=== PATIENT | female | born 2000 | race African-American/Black ===

== ENCOUNTER 2018-08-08 13:39 | Observation (INO) | payer OTHER ==
--- NOTE | 2018-08-08 13:51 | PDOC ---
Rapid Medical Evaluation Time Seen by Provider: 08/08/18 13:49 Medical Evaluation: 08/08/18 13:49 I have performed a brief in-person evaluation of this patient. The patient presents with a chief complaint of: abd pain x this morning, "feels like maybe pressure", diarrhea this morning, denies N/V/fever Pertinent physical exam findings: obese, RUQ/epigastric tenderness I have ordered the following: labs, ct, urine The patient will proceed to the ED for further evaluation.
[2018-08-08 13:54] VITALS: BMI 42.0
--- NOTE | 2018-08-08 15:01 | PDOC ---
History of Present Illness - General Chief Complaint: Pain, Acute Stated Complaint: ABD PAIN Time Seen by Provider: 08/08/18 13:49 History Source: Patient Exam Limitations: No Limitations - History of Present Illness Initial Comments: 08/08/18 15:01 17 year old woman with a history of endometritis, asthma and hidradenitis suppurativa who presetns with mid abdominal pain that is pressure like rated 8/ 10 and onset this morning when she woke up. She took some Aleve and pepto bismol this morning without relief. She states the pain has been constant since onset. She reports one episode of loose nonbloody stool but denies nausea, vomiting, fever, chset pain ,shortness of breath. She states that she has had one episode of this same pain several years ago and was found to have a peylonephritis. She has irregular menses and is currently menstruating. She has an IUD for control and is sexually active with one partner She denies vaginal discharge. Past History - Past Medical History Allergies/Adverse Reactions: Allergies Allergy/AdvReac Type Severity Reaction Status Date / Time No Known Allergies Allergy Verified 08/08/18 13:50 Home Medications: Ambulatory Orders Cephalexin Monohydrate [Keflex -] 500 mg PO BID 7 Days #14 capsule 08/08/18 Levonorgestrel [Karla] 1 each IY ASDIR 08/08/18 - Suicide/Smoking/Psychosocial Hx Smoking History: Never smoked Information on smoking cessation initiated: No Hx Alcohol Use: No Drug/Substance Use Hx: Yes (MARIJUANA) Review of Systems - Review of Systems Able to Perform ROS?: Yes Comments:: 08/08/18 17:43 GENERAL/CONSTITUTIONAL: No fever or chills. No weakness. HEAD, EYES, EARS, NOSE AND THROAT: No change in vision. No ear pain or discharge. No sore throat. CARDIOVASCULAR: No chest pain or shortness of breath RESPIRATORY: No cough, wheezing, or hemoptysis. GASTROINTESTINAL: No nausea, vomiting, constipation. GENITOURINARY: No dysuria, frequency, or change in urination. MUSCULOSKELETAL: No joint or muscle swelling or pain. No neck or back pain. SKIN: No rash NEUROLOGIC: No headache, vertigo, loss of consciousness, or change in strength/ sensation. ENDOCRINE: No increased thirst. No abnormal weight change HEMATOLOGIC/LYMPHATIC: No anemia, easy bleeding, or history of blood clots. ALLERGIC/IMMUNOLOGIC: No hives or skin allergy. Is the patient limited Singaporean proficient: No *Physical Exam - Vital Signs Last Vital Signs Temp Pulse Resp BP Pulse Ox 98.1 F 103 H 16 128/69 97 08/08/18 13:50 08/08/18 13:50 08/08/18 13:50 08/08/18 13:50 08/08/18 13:50 - Physical Exam Comments: 08/08/18 17:43 GENERAL: Awake, alert, and fully oriented, in no acute distress HEAD: No signs of trauma, normocephalic, atraumatic EYES: EOMI, sclera anicteric, conjunctiva clear ENT: oropharynx clear without exudates. Moist mucosa NECK: Normal ROM, supple LUNGS: No distress, speaks full sentences, clear to auscultation bilaterally HEART: Regular rate and rhythm, normal S1 and S2, no murmurs, rubs or gallops, peripheral pulses normal and equal bilaterally. ABDOMEN: Soft, + RLQ tenderness, normoactive bowel sounds. No guarding, no rebound. No masses EXTREMITIES : Normal inspection, Normal range of motion, no edema. No clubbing or cyanosis. NEUROLOGICAL: Cranial nerves II through XII grossly intact. Normal speech, no focal sensorimotor deficits SKIN: Warm, Dry, normal turgor, no rashes or lesions noted PELVIC: blood in vaginal canal, intact IUD strings, no cervical motion tenderness, no adnexal masses palpated ED Treatment Course - LABORATORY CBC & Chemistry Diagram: 08/08/18 15:38 08/08/18 15:38 Medical Decision Making - Medical Decision Making 08/08/18 16:41 17 year old woman with a history of endometritis, asthma and hidradenitis suppurativa who presetns with mid abdominal pain that is pressure like rated 8/ 10 and onset this morning when she woke up. She took some Aleve and pepto bismol this morning without relief. She states the pain has been constant since onset. She reports one episode of loose nonbloody stool but denies nausea, vomiting, fever, chset pain ,shortness of breath. She states that she has had one episode of this same pain several years ago and was found to have a peylonephritis. She has irregular menses and is currently menstruating. She has an IUD for control and is sexually active with one partner She denies vaginal discharge. ED Course: ddx ibnlt: appendicitis vs ovarian torsion vs ectopic vs toa cbc, cmp, ua, upreg, CT AP 08/08/18 17:47 ivf, tylenol, reglan 08/08/18 17:47 leukocytosis on cbc small UTI 08/08/18 19:04 CT AP - negative will treat uti and d/c with strict return precautions 08/08/18 19:24 patient reassessed prior to d/c oral temp of 102.3 fluid boluis given toradl 15 will likely admit for unremitting abdominal pain and fever likely 2/2 uti r/o early appy *DC/Admit/Observation/Transfer Diagnosis at time of Disposition: Urinary tract infection - Discharge Dispostion Disposition: HOME Condition at time of disposition: Stable Decision to Admit order: No - Prescriptions Prescriptions: Cephalexin Monohydrate [Keflex -] 500 mg PO BID 7 Days #14 capsule - Referrals - Patient Instructions Printed Discharge Instructions: DI for Urinary Tract Infection (UTI) Additional Instructions: You were seen in the ED for complaints of lower abdominal pain. In the ED you were evaluated with labwork and imaging. Your results were unremarkable. There does not appear to be an acute need for immediate hospitalization. You are advised to follow up with your Primary Care Physician within 1 week. You were given a prescription for antibiotics and are advised to take medication as indicated. Return to the ED immediately if you experience worsening abdominal pain, fevers , nausea, vomiting, blood in urine or stool. - Post Discharge Activity
[2018-08-08] MEDS ORDERED: SODIUM CHLORIDE 1,000 ML IV SCH ×3 (15:15→21:30)
[2018-08-08 15:53] LABS: BASO % 0.2 % (0-2.0); EOS % 0.8 % (0-4.5); HEMATOCRIT 37.6 % (32.4-45.2); HEMOGLOBIN 11.2 GM/dL (10.7-15.3); LYMPH % 7.1 % (8-40); MCH 20.6 pg (25.7-33.7); MCHC 29.8 g/dl (32.0-36.0); MEAN CELL VOLUME 69.2 fl (80-96); MEAN PLT VOLUME 8.4 fl (7.5-11.1); MONO % 6.6 % (3.8-10.2); NEUT % 85.3 % (42.8-82.8); PLATELET COUNT 318 K/MM3 (134-434); RBC 5.44 M/mm3 (3.60-5.2); RDW 17.7 % (11.6-15.6); WHITE BLOOD COUNT 14.1 K/mm3 (4.0-10.0)
[2018-08-08 16:24] LABS: PH,URINE 5.5 (5.0-8.0); URINE APPEARANCE CLEAR; URINE BILIRUBIN NEGATIVE (NEGATIVE); URINE COLOR YELLOW; URINE GLUCOSE (UA) NEGATIVE (NEGATIVE); URINE KETONE NEGATIVE (NEGATIVE); URINE LEUK ESTERASE 2+ (NEGATIVE); URINE NITRITE NEGATIVE (NEGATIVE); URINE PROTEIN NEGATIVE (NEGATIVE); URINE UROBILINOGEN 0.2 mg/dL (0.2-1.0)
[2018-08-08 16:25] LABS: HCG,QUALITATIVE URINE Negative
[2018-08-08] MEDS ORDERED: METOCLOPRAMIDE HCL INJECTION 10 MG/2 ML VIAL IVPUSH ONE (16:38)
[2018-08-08] MEDS ORDERED: ACETAMINOPHEN 1000 MG/100 ML VIAL (NON FORMULARY) IVPB ONE (16:38)
[2018-08-08 16:46] LABS: ALBUMIN 4.1 g/dl (3.4-5.0); BILIRUBIN,TOTAL 0.4 mg/dL (0.2-1); CALCIUM 9.1 mg/dL (8.5-10.1); CREATININE 0.6 mg/dL (0.55-1.3); POTASSIUM 4.2 mmol/L (3.5-5.1); TOT PROT 7.8 g/dl (6.4-8.2)
--- NOTE | 2018-08-08 16:59 | PDOC ---
Documentation entered by Diana Rod SCRIBE, acting as scribe for Nayely Cancino DO. Nayely Cancino DO: This documentation has been prepared by the Marcel liu Adrianna, SCRIBE, under my direction and personally reviewed by me in its entirety. I confirm that the documentation accurately reflects all work, treatment, procedures, and medical decision making performed by me. Attending Attestation - Resident Resident Name: Rosemarie Shipman - ED Attending Attestation I have performed the following: I have examined & evaluated the patient, The case was reviewed & discussed with the resident, I agree w/resident's findings & plan, Exceptions are as noted - HPI HPI: 08/08/18 17:00 The patient is a 17 year old female, with significant PMH of endometritis, asthma, and hidradenitis suppurativa, who presents to the emergency department with abdominal pain for a few hours. Patient reports feeling mid abdominal pressure, which she rates as an 8/10 in nature. Patient denies relief when taking Aleve and Pepto Bismol. She reports one episode of associated loose, bloody stool earlier today. Patient endorses having an irregular period, but notes she is sexually active with one partner while on oral contraceptives. She reports having one episode of similar abdominal pain a few years ago, where she was diagnosed with a kidney infection. The patient denies chest pain, shortness of breath, headache and dizziness. Denies fever, chills, nausea, vomit, diarrhea and constipation. Denies dysuria, frequency, urgency and hematuria. Allergies: NKA Past surgical history: None reported Social history: No reported - Physicial Exam PE: 08/08/18 17:00 GENERAL: +Anorexia today (but ate churro 2 hours prior to arrival) Awake, alert , and fully oriented, in no acute distress HEAD: No signs of trauma EYES: PERRLA, EOMI, sclera anicteric, conjunctiva clear ENT: Auricles normal inspection, hearing grossly normal, nares patent, oropharynx clear without exudates. Moist mucosa NECK: Normal ROM, supple, no lymphadenopathy, JVD, or masses LUNGS: Breath sounds equal, clear to auscultation bilaterally. No wheezes, and no crackles HEART: Regular rate and rhythm, normal S1 and S2, no murmurs, rubs or gallops ABDOMEN: +Mild diffuse tenderness to palpation, with maximum tenderness over the RLQ. +Positive Ant. Negative Rovsing's sign. Negative psoas sign. Soft , normoactive bowel sounds. No guarding, no rebound. No masses EXTREMITIES: Normal range of motion, no edema. No clubbing or cyanosis. No cords, erythema, or tenderness NEUROLOGICAL: Cranial nerves II through XII grossly intact. Normal speech, normal gait SKIN: Warm, Dry, normal turgor, no rashes or lesions noted. - Medical Decision Making 08/08/18 16:51 I, Dr. Nayely Cancino, DO, attest that this document has been prepared under my direction and personally reviewed by me in its entirety. I further attest, that it accurately reflects all work, treatment, procedures and medical decision -making performed by me. 08/08/18 16:51 a/p: 17yo female with onset today of abd pain -pain started around umbilicus and has now located to RLQ with assoc diarrhea, chills, and anorexia -hx of irreg menstrual cycles - bleeding today, on BC -no fevers -concern for poss appendicitis -will send labs, ct abd/pelvis with iv contrast only -will give tylenol for pain/reglan -will monitor and reassess 08/08/18 19:02 no acute appy on ct no acute intraabd pathology pt with elevated wbc and uti will give rocephin IV 08/08/18 19:33 pt still with pain, uti, fever, elevated wbc iv abx ordered cultures ordered will place in obs for repeat abd exams, uti treatment 08/08/18 20:48 resident discussed the case with VALDEMAR who accepts pt to service
[2018-08-08 17:07] LABS: URINE BACTERIA 38.4 /hpf (NEGATIVE); URINE RBC 18.9 /hpf (0-4); URINE WBC 41.7 /hpf (0-5)
[2018-08-08 17:08] LABS: EPI CELLS MODERATE /HPF (0-5/HPF)
[2018-08-08] MEDS ORDERED: ACETAMINOPHEN INJECTION 100 ML IVPB ONE (17:22)
[2018-08-08] MEDS ORDERED: METOCLOPRAMIDE HCL INJECTION 10 MG/2 ML VIAL ONE (17:22)
[2018-08-08] MEDS ORDERED: CEFTRIAXONE 1,000 MG in DEXTROSE 5%-WATER - 50 ML IVPB ONE (19:02)
[2018-08-08] MEDS ORDERED: KETOROLAC TROMETHAMINE 15 MG/ML VIAL IVPUSH ONE (19:24)
--- NOTE | 2018-08-08 19:29 | PDOC ---
*Physical Exam - Vital Signs Last Vital Signs Temp Pulse Resp BP Pulse Ox 98.1 F 103 H 16 128/69 97 08/08/18 13:50 08/08/18 13:50 08/08/18 13:50 08/08/18 13:50 08/08/18 13:50 ED Treatment Course - LABORATORY CBC & Chemistry Diagram: 08/09/18 06:00 08/09/18 06:00 - ADDITIONAL ORDERS Additional order review: Laboratory Results 08/08/18 08/08/18 15:56 15:38 Sodium 138 Potassium 4.2 Chloride 105 Carbon Dioxide 27 Anion Gap 7 L BUN 12 Creatinine 0.6 Est GFR (CKD-EPI)AfAm 153.15 Est GFR (CKD-EPI)NonAf 132.14 Random Glucose 90 Calcium 9.1 Total Bilirubin 0.4 AST 16 ALT 20 Alkaline Phosphatase 67 Total Protein 7.8 Albumin 4.1 Lipase 81 Urine Color Yellow Urine Appearance Clear Urine pH 5.5 Ur Specific [place] 1.033 Urine Protein Negative Urine Glucose (UA) Negative Urine Ketones Negative Urine Blood 3+ H Urine Nitrite Negative Urine Bilirubin Negative Urine Urobilinogen 0.2 Ur Leukocyte Esterase 2+ H Urine WBC (Auto) 41.7 Urine RBC (Auto) 18.9 U Epithel Cells (Auto) Moderate Urine Bacteria (Auto) 38.4 Urine HCG, Qual Negative 08/08/18 15:38 RBC 5.44 H MCV 69.2 L MCHC 29.8 L RDW 17.7 H MPV 8.4 Neutrophils % 85.3 H Lymphocytes % 7.1 L Monocytes % 6.6 Eosinophils % 0.8 Basophils % 0.2 - Medications Given in the ED: ED Medications Discontinued Medications Generic Name Dose Route Start Last Admin Trade Name Freq PRN Reason Stop Dose Admin Metoclopramide HCl 10 mg 08/08/18 16:38 08/08/18 19:03 Reglan Injection - IVPUSH 08/08/18 16:39 10 mg ONCE ONE Administration Medical Decision Making - Medical Decision Making Patient signed out from Dr. Shipman 17 year old woman with a history of endometritis, asthma and hidradenitis suppurativa who presetns with mid abdominal pain that is pressure like rated 8/ 10 and onset this morning when she woke up. CTAP negative for acute pathology, but now febrile and still endorsing abdominal pain. +Leukocytosis. Plan to admit for r/o appendicitis. Discussed case with Dr. Griffin who accepted patient for admission under Dr. Sandoval 08/08/18 20:[address] Griffin requesting blood cultures and lactate to be collected. Drawn and sent. *DC/Admit/Observation/Transfer Diagnosis at time of Disposition: Urinary tract infection - Discharge Dispostion Condition at time of disposition: Guarded Decision to Admit order: Yes - Prescriptions - Referrals - Patient Instructions - Post Discharge Activity
[2018-08-08] MEDS ORDERED: ACETAMINOPHEN 325 MG TABLET (FP) PO PRN (20:55)
--- NOTE | 2018-08-08 21:17 | PN ---
Teaching Attending Note Name of Resident: Sylvain Griffin ATTENDING PHYSICIAN STATEMENT I saw and evaluated the patient. I reviewed the resident's note and discussed the case with the resident. I agree with the resident's findings and plan as documented. SUBJECTIVE: Patient is a 17 year old woman with PMH of endometritis, asthma, and hidradenitis suppurativa, who presents to the ER with abdominal pain for a few hours. Patient reports feeling mid abdominal pressure, which she rates as an 8 /10 in nature. Patient denies relief when taking Aleve and Pepto Bismol. She reports one episode of associated loose, bloody stool earlier today. Patient is currently having her period. Has irregular periods, is sexually active with one partner and is on oral contraceptives. She reports having one episode of similar abdominal pain a few years ago, where she was diagnosed with a kidney infection. Smokes marijuana but denies use of any illicit drugs. Says she often gets UTI during her period. Has had chills but no fever. Denies chest pain, shortness of breath, headache and dizziness. Denies fever, nausea, vomit or constipation. Denies dysuria, frequency, urgency and hematuria. OBJECTIVE: Alert Vital Signs Period Temp Pulse Resp BP Sys/Anderson Pulse Ox Last 24 Hr 98.1 F-102.2 F 103-112 16-17 117-128/69-80 97-97 HEENT: No Jaundice, eye redness or discharge, PERRLA, EOMI. Normocephalic, atraumatic. External ears are normal and hearing is grossly intact. No nasal discharge. Neck: Supple, nontender. No palpable adenopathy or thyromegaly. No JVD Chest: Good effort. Clear to auscultation and percussion. Heart: Regular. No S3, rub or murmur Abdomen: Not distended, soft, diffuse tenderness and no HSM. No rebound or guarding. Normal bowel sounds. Ext: Peripheral pulses intact. No leg edema. Skin: Warm and dry. No petechiae, rash or ecchymosis. Neuro: Alert. Oriented x3. CN 2-12 grossly intact. Sensation grossly intact in all four extremities and DTR are symmetric. Psych: Appropriate mood and affect. Good insight. Current Medications Generic Name Dose Route Start Last Admin Trade Name Freq PRN Reason Stop Dose Admin Acetaminophen 650 mg 08/08/18 20:55 Tylenol - PO Q4H PRN FEVER Sodium Chloride 1,000 mls @ 0 mls/hr 08/08/18 15:15 08/08/18 15:45 Normal Saline - IV 1,000 mls/hr ASDIR NILDA Administration Wide Open Sodium Chloride 1,000 mls @ 0 mls/hr 08/08/18 19:15 Normal Saline - IV ASDIR NILDA Wide Open Ceftriaxone Sodium 1 gm/ 50 mls @ 100 mls/hr 08/08/18 21:00 Dextrose IVPB DAILY NILDA Protocol Sodium Chloride 1,000 mls @ 83 mls/hr 08/08/18 21:30 Normal Saline - IV ASDIR NILDA Home Medications Medication Instructions Recorded Cephalexin Monohydrate [Keflex -] 500 mg PO BID 7 Days #14 capsule 08/08/18 Levonorgestrel [Karla] 1 each IY ASDIR 08/08/18 Abnormal Lab Results 08/08/18 08/08/18 08/08/18 15:38 15:38 15:56 WBC 14.1 H RBC 5.44 H MCV 69.2 L MCH 20.6 L MCHC 29.8 L RDW 17.7 H Absolute Neuts (auto) 12.0 H Neutrophils % 85.3 H Lymphocytes % 7.1 L Anion Gap 7 L Urine Blood 3+ H Ur Leukocyte Esterase 2+ H ASSESSMENT AND PLAN: 1. UTI - Has features of UTI. CT abdomen/pelvis with IV contrast showed adnexal cysts with trace free pelvic fluid and no evidence of appendicitis or pancreatitis. Sepsis workup being done, and blood sent for lactic acid and serology for chlamydia and N. gonorrhoea. Will treat with IV Rocephin and IV NS. If no improvement in AM, will repeat CT and consult surgery. 2. Morbid Obesity Counseled on the risks associated with morbid obesity. Will provide patient all the necessary assistance, counseling and positive reinforcement to facilitate weight loss. Consult senior office assistant. 3. DVT prophylaxis - Lovenox 40 mg SQ q 12 hours. 4. Advance directives - Full code
--- NOTE | 2018-08-08 21:24 | HP ---
CHIEF COMPLAINT: abdominal pain PCP: in [place] HISTORY OF PRESENT ILLNESS: Patient is a 17 yo F with a PMHx of endometritis, asthma, hidradenitis supportiva, presented with 8/10 diffuse abdominal pain when she woke up this morning. She took an Aleve and pepto-bismol with no relief. She said she went to a restaurant last night and ate [place] and baked potato. She reports 1 episode of diarrhea this morning which has since resolved. She also reports having chills a few hours after onset of abdominal pain. She is currently on her period. She said her periods are irregular because she is on control and only last 1 day. She does not think the pain is related to her menstruation. Patient says she gets UTI's when she gets her period. She also mentioned having a kidney infection a few years ago but did not require hospitalization. She was sent home on antibiotics. She denies nausea/vomiting, fevers, chest pain, headache, shortness of breath, urinary symptoms, sick contacts, rash, vaginal discharge. ER course was notable for: (1) 102.2 temp, tachy 112 (2) U/A with 2+ LE, 41 WBC (3) CTAP w/ contrast: unremarkable. no appendicitis. Revealed adnexal cysts w trace free pelvic fluid Recent Travel: visiting from [place] PAST MEDICAL HISTORY: per HPI Social History: Smoking: denies Alcohol: denies Drugs: marijuana Sexually active with 1 partner Family History: mother with DM Allergies No Known Allergies Allergy (Verified 08/08/18 13:50) HOME MEDICATIONS: Home Medications Medication Instructions Recorded Cephalexin Monohydrate [Keflex -] 500 mg PO BID 7 Days #14 capsule 08/08/18 Levonorgestrel [Karla] 1 each IY ASDIR 08/08/18 REVIEW OF SYSTEMS CONSTITUTIONAL: chills Absent: fever, diaphoresis, generalized weakness, malaise, loss of appetite, weight change HEENT: Absent: rhinorrhea, nasal congestion, throat pain, throat swelling, difficulty swallowing, mouth swelling, ear pain, eye pain, visual changes CARDIOVASCULAR: Absent: chest pain, syncope, palpitations, irregular heart rate, lightheadedness , peripheral edema RESPIRATORY: Absent: cough, shortness of breath, dyspnea with exertion, orthopnea, wheezing, stridor, hemoptysis GASTROINTESTINAL: diarrhea Absent: abdominal pain, abdominal distension, nausea, vomiting, constipation, melena, hematochezia GENITOURINARY: Absent: dysuria, frequency, urgency, hesitancy, hematuria, flank pain, genital pain MUSCULOSKELETAL: Absent: myalgia, arthralgia, joint swelling, back pain, neck pain SKIN: Absent: rash, itching, pallor HEMATOLOGIC/IMMUNOLOGIC: Absent: easy bleeding, easy bruising, lymphadenopathy, frequent infections ENDOCRINE: Absent: unexplained weight gain, unexplained weight loss, heat intolerance, cold intolerance NEUROLOGIC: Absent: headache, focal weakness or paresthesias, dizziness, unsteady gait, seizure, mental status changes, bladder or bowel incontinence PSYCHIATRIC: Absent: anxiety, depression, suicidal or homicidal ideation, hallucinations. PHYSICAL EXAMINATION Vital Signs - 24 hr 08/08/18 08/08/18 13:50 20:41 Temperature 98.1 F 102.2 F H Pulse Rate 103 H Pulse Rate [ 112 H Left Brachial] Respiratory 16 17 Rate Blood Pressure 128/69 Blood Pressure 117/80 [Left Arm] O2 Sat by Pulse 97 97 Oximetry (%) GENERAL: Obese, Awake, alert, and fully oriented, in no acute distress. HEAD: Normal with no signs of trauma. EYES: Pupils equal, round and reactive to light, extraocular movements intact, sclera anicteric, conjunctiva clear. EARS, NOSE, THROAT: oropharynx clear without exudates. Moist mucous membranes. NECK: Normal range of motion, supple without lymphadenopathy, JVD, or masses. LUNGS: Breath sounds equal, clear to auscultation bilaterally. No wheezes, and no crackles. HEART: Regular rate and rhythm, normal S1 and S2 without murmur, rub or gallop. ABDOMEN: Soft, Diffuse tenderness to palpation in all quadrants. No CVA tenderness. MUSCULOSKELETAL: Normal range of motion at all joints. No bony deformities or tenderness. UPPER EXTREMITIES: 2+ pulses, warm, well-perfused. No cyanosis. No clubbing. No peripheral edema. LOWER EXTREMITIES: 2+ pulses, warm, well-perfused. No calf tenderness. No peripheral edema. NEUROLOGICAL: Cranial nerves II-XII intact. Normal speech. Normal gait. PSYCHIATRIC: Cooperative. Good eye contact. Appropriate mood and affect. SKIN: Warm, dry, normal turgor, no rashes or lesions noted, normal capillary refill. Laboratory Results - last 24 hr 05/08/08/18 08/08/18 15:38 15:38 15:56 WBC 14.1 H RBC 5.44 H Hgb 11.2 Hct 37.6 MCV 69.2 L MCH 20.6 L MCHC 29.8 L RDW 17.7 H Plt Count 318 MPV 8.4 Absolute Neuts (auto) 12.0 H Neutrophils % 85.3 H Lymphocytes % 7.1 L Monocytes % 6.6 Eosinophils % 0.8 Basophils % 0.2 Nucleated RBC % 0 Hypochromia 1+ Microcytosis 1+ Sodium 138 Potassium 4.2 Chloride 105 Carbon Dioxide 27 Anion Gap 7 L BUN 12 Creatinine 0.6 Est GFR (CKD-EPI)AfAm 153.15 Est GFR (CKD-EPI)NonAf 132.14 Random Glucose 90 Calcium 9.1 Total Bilirubin 0.4 AST 16 ALT 20 Alkaline Phosphatase 67 Total Protein 7.8 Albumin 4.1 Lipase 81 Urine Color Yellow Urine Appearance Clear Urine pH 5.5 Ur Specific [place] 1.033 Urine Protein Negative Urine Glucose (UA) Negative Urine Ketones Negative Urine Blood 3+ H Urine Nitrite Negative Urine Bilirubin Negative Urine Urobilinogen 0.2 Ur Leukocyte Esterase 2+ H Urine WBC (Auto) 41.7 Urine RBC (Auto) 18.9 U Epithel Cells (Auto) Moderate Urine Bacteria (Auto) 38.4 Urine HCG, Qual Negative ASSESSMENT/PLAN: 17 yo F with a PMHx of endometritis, asthma, hidradenitis supportiva, presented with 8/10 diffuse abdominal pain #Sepsis 2/2 UTI -WBC 14.1, Tachy 112, +UA -no urinary symptoms -start ceftriaxone daily -Iv fluids @ 83 ml/hour -urine cultures, blood cultures -FU LA -gonorrhea, chlamydia pcr #Abdominal Pain -likely gastroenteritis vs UTI -IV fluids @83 ml/hour -FU LA -gonorrhea, chlamydia pcr -monitor overnight -CTAP w/ contrast: unremarkable. no appendicitis. Revealed adnexal cysts w trace free pelvic fluid -Consider consulting surgery in the AM if abdominal pain persists. #FEN -IV fluids NS @ 83ml/hour -monitor -npo #Dvt ppx -eab dispo: obs
[2018-08-08 21:41] LABS: INR 1.29 (0.83-1.09); PROTHROMBIN TIME (PATIENT) 15.3 SEC (9.7-13.0)
[2018-08-08 21:43] LABS: ACTIVATED PTT 37.2 SECONDS (25.2-36.5)
[2018-08-08] MEDS ORDERED: KETOROLAC TROMETHAMINE 15 MG/ML VIAL ONE (22:25)
[2018-08-08] MEDS ORDERED: CEFTRIAXONE 1 GM/50 ML BAG ONE (22:25)
[2018-08-08] MEDS: CEFTRIAXONE 1 GM in DEXTROSE 5%-WATER - 50 ML IVPB SCH (22:38)
[2018-08-09 06:25] LABS: BASO % 0.3 % (0-2.0); EOS % 1.7 % (0-4.5); HEMATOCRIT 32.4 % (32.4-45.2); HEMOGLOBIN 9.8 GM/dL (10.7-15.3); LYMPH % 17.4 % (8-40); MCH 20.7 pg (25.7-33.7); MCHC 30.2 g/dl (32.0-36.0); MEAN CELL VOLUME 68.3 fl (80-96); MEAN PLT VOLUME 7.8 fl (7.5-11.1); MONO % 6.1 % (3.8-10.2); NEUT % 74.5 % (42.8-82.8); PLATELET COUNT 299 K/MM3 (134-434); RBC 4.73 M/mm3 (3.60-5.2); RDW 17.4 % (11.6-15.6); WHITE BLOOD COUNT 11.3 K/mm3 (4.0-10.0)
[2018-08-09 07:13] LABS: ALBUMIN 3.3 g/dl (3.4-5.0); BILIRUBIN,TOTAL 0.7 mg/dL (0.2-1); CALCIUM 8.2 mg/dL (8.5-10.1); CREATININE 0.6 mg/dL (0.55-1.3); MAGNESIUM 2.1 mg/dL (1.8-2.4); PHOSPHOROUS 4.7 mg/dL (2.5-4.9); POTASSIUM 3.7 mmol/L (3.5-5.1); TOT PROT 6.6 g/dl (6.4-8.2)
[2018-08-09] MEDS ORDERED: CEFTRIAXONE 1 GM/50 ML BAG ONE (07:35)
[2018-08-09] MEDS ORDERED: SODIUM CHLORIDE 1,000 ML IV SCH (08:34)
--- NOTE | 2018-08-09 08:37 | PN ---
Teaching Attending Note Name of Resident: Kameron Mock ATTENDING PHYSICIAN STATEMENT I saw and evaluated the patient. I reviewed the resident's note and discussed the case with the resident. I agree with the resident's findings and plan as documented. SUBJECTIVE: Patient is feeling better with no acute distress. wants to go home. OBJECTIVE: Initial Vital Signs Temp Pulse Resp BP Pulse Ox 98.1 F 103 H 16 128/69 97 08/08/18 13:50 08/08/18 13:50 08/08/18 13:50 08/08/18 13:50 08/08/18 13:50 Vital Signs Temperature 98.5 F 08/09/18 15:52 Pulse Rate 82 08/09/18 15:52 Respiratory Rate 18 08/09/18 15:52 Blood Pressure 123/66 08/09/18 15:52 O2 Sat by Pulse Oximetry (%) 100 08/09/18 15:52 GENERAL: The patient is awake, alert, and fully oriented, in no acute distress. HEAD: Normal with no signs of trauma. EYES: PERRL, extraocular movements intact, sclera anicteric, conjunctiva clear. ENT: Ears normal, oropharynx clear without exudates, moist mucous membranes. NECK: Trachea midline, full range of motion, supple. LUNGS: Breath sounds equal, clear to auscultation bilaterally, no wheezes, no crackles, no accessory muscle use. HEART: Regular rate and rhythm, S1, S2 without murmur, rub or gallop. ABDOMEN: Soft, large abdomen, nontender, nondistended, normoactive bowel sounds , no guarding, no rebound, no hepatosplenomegaly, no masses. EXTREMITIES: 2+ pulses, warm, well-perfused, no edema. NEUROLOGICAL: Cranial nerves II through XII grossly intact. Normal speech, gait not observed. PSYCH: Normal mood, normal affect. SKIN: Warm, dry, normal turgor, no rashes or lesions noted CBCD WBC 11.3 K/mm3 (4.0-10.0) H 08/09/18 06:00 RBC 4.73 M/mm3 (3.60-5.2) 08/09/18 06:00 Hgb 9.8 GM/dL (10.7-15.3) L 08/09/18 06:00 Hct 32.4 % (32.4-45.2) 08/09/18 06:00 MCV 68.3 fl (80-96) L 08/09/18 06:00 MCHC 30.2 g/dl (32.0-36.0) L 08/09/18 06:00 RDW 17.4 % (11.6-15.6) H 08/09/18 06:00 Plt Count 299 K/MM3 (134-434) 08/09/18 06:00 MPV 7.8 fl (7.5-11.1) 08/09/18 06:00 CMP Sodium 140 mmol/L (136-145) 08/09/18 06:00 Potassium 3.7 mmol/L (3.5-5.1) 08/09/18 06:00 Chloride 108 mmol/L (98-107) H 08/09/18 06:00 Carbon Dioxide 24 mmol/L (21-32) 08/09/18 06:00 Anion Gap 8 MMOL/L (8-16) 08/09/18 06:00 BUN 8 mg/dL (7-18) 08/09/18 06:00 Creatinine 0.6 mg/dL (0.55-1.3) 08/09/18 06:00 Random Glucose 100 mg/dL (74-106) 08/09/18 06:00 Calcium 8.2 mg/dL (8.5-10.1) L 08/09/18 06:00 Total Bilirubin 0.7 mg/dL (0.2-1) 08/09/18 06:00 AST 10 U/L (15-37) L 08/09/18 06:00 ALT 16 U/L (13-61) 08/09/18 06:00 Alkaline Phosphatase 55 U/L (45-117) 08/09/18 06:00 Total Protein 6.6 g/dl (6.4-8.2) 08/09/18 06:00 Albumin 3.3 g/dl (3.4-5.0) L 08/09/18 06:00 Current Medications Generic Name Dose Route Start Last Admin Trade Name Freq PRN Reason Stop Dose Admin Acetaminophen 650 mg 08/08/18 20:55 Tylenol - PO Q4H PRN FEVER Ceftriaxone Sodium 1 gm/ 50 mls @ 100 mls/hr 08/08/18 21:00 08/08/18 22:38 Dextrose IVPB 100 mls/hr DAILY [facility] Administration Protocol Sodium Chloride 1,000 mls @ 125 mls/hr 08/09/18 08:34 Normal Saline - IV ASDIR [facility] Home Medications Medication Instructions Recorded Cephalexin Monohydrate [Keflex -] 500 mg PO BID 7 Days #14 capsule 08/08/18 Levonorgestrel [Karla] 1 each IY ASDIR 08/08/18 Urine Test Results Urine Color Yellow 08/08/18 15:56 Urine Appearance Clear 08/08/18 15:56 Urine pH 5.5 (5.0-8.0) 08/08/18 15:56 Ur Specific [place] 1.033 (1.010-1.035) 08/08/18 15:56 Urine Protein Negative (NEGATIVE) 08/08/18 15:56 Urine Glucose (UA) Negative (NEGATIVE) 08/08/18 15:56 Urine Ketones Negative (NEGATIVE) 08/08/18 15:56 Urine Blood 3+ (NEGATIVE) H 08/08/18 15:56 Urine Nitrite Negative (NEGATIVE) 08/08/18 15:56 Urine Bilirubin Negative (NEGATIVE) 08/08/18 15:56 Ur Leukocyte Esterase 2+ (NEGATIVE) H 08/08/18 15:56 CT Abdomen and pelvis reviewed. ASSESSMENT AND PLAN: Patient is a 17 year old female with PMHx of endometritis, asthma, and hidradenitis suppurativa, who presents to the ER , c/o having abdominal pain. And was found to have UTI, patient is sexually active and gets irrgular periods , is sexually active with one partner and has IUD . # Acute UTI - On IV Rocephin , no further fever , will send the patient home on ceftin x 5 more days. GC/CH cx is pending. will give 1gm of Zthromax x 1 dose # Morbid Obesity Diet and weight loss recommended DVT prophylaxis - Lovenox 40 mg SQ q 12 hours. Advance directives - Full code
[2018-08-09] MEDS: CEFTRIAXONE 1 GM in DEXTROSE 5%-WATER - 50 ML IVPB SCH (09:15)
[2018-08-09] MEDS ORDERED: AZITHROMYCIN IVPB 500 MG in DEXTROSE 5%-WATER - 250 ML IVPB ONE (10:42)
[2018-08-09] MEDS ORDERED: AZITHROMYCIN 500 MG TABLET PO ONE (10:44)
[2018-08-09] MEDS ORDERED: AZITHROMYCIN 250 MG TABLET ONE (11:05)
--- NOTE | 2018-08-09 14:00 | DS ---
Physical Exam: SUBJECTIVE: Patient seen and examined at bedside. no acute events. abd pain improved. pt tolerating po and requesting to go home. denies fever, chills, n/v/ d, cp, sob OBJECTIVE: Vital Signs Period Temp Pulse Resp BP Sys/Anderson Pulse Ox Last 24 Hr 98.6 F-102.2 F 83-112 17-18 117-135/67-91 97-99 PHYSICAL EXAM GENERAL: Obese, Awake, alert, and fully oriented, in no acute distress. HEAD: Normal with no signs of trauma. EYES: Pupils equal, round and reactive to light, extraocular movements intact, sclera anicteric, conjunctiva clear. EARS, NOSE, THROAT: oropharynx clear without exudates. Moist mucous membranes. NECK: Normal range of motion, supple without lymphadenopathy, JVD, or masses. LUNGS: Breath sounds equal, clear to auscultation bilaterally. No wheezes, and no crackles. HEART: Regular rate and rhythm, normal S1 and S2 without murmur, rub or gallop. ABDOMEN: Soft, NTND +BS MUSCULOSKELETAL: Normal range of motion at all joints. No bony deformities or tenderness. UPPER EXTREMITIES: 2+ pulses, warm, well-perfused. No cyanosis. No clubbing. No peripheral edema. LOWER EXTREMITIES: 2+ pulses, warm, well-perfused. No calf tenderness. No peripheral edema. NEUROLOGICAL: Cranial nerves II-XII intact. Normal speech. Normal gait. PSYCHIATRIC: Cooperative. Good eye contact. Appropriate mood and affect. SKIN: Warm, dry, normal turgor, no rashes or lesions noted, normal capillary refill. LABS Laboratory Results - last 24 hr 08/08/18 08/08/18 08/08/18 09:25 15:38 15:38 WBC 14.1 H RBC 5.44 H Hgb 11.2 Hct 37.6 MCV 69.2 L MCH 20.6 L MCHC 29.8 L RDW 17.7 H Plt Count 318 MPV 8.4 Absolute Neuts (auto) 12.0 H Neutrophils % 85.3 H Lymphocytes % 7.1 L Monocytes % 6.6 Eosinophils % 0.8 Basophils % 0.2 Nucleated RBC % 0 Hypochromia 1+ Microcytosis 1+ PT with INR INR PTT (Actin FS) Sodium 138 Potassium 4.2 Chloride 105 Carbon Dioxide 27 Anion Gap 7 L BUN 12 Creatinine 0.6 Est GFR (CKD-EPI)AfAm 153.15 Est GFR (CKD-EPI)NonAf 132.14 Random Glucose 90 Lactic Acid Calcium 9.1 Phosphorus Magnesium Total Bilirubin 0.4 AST 16 ALT 20 Alkaline Phosphatase 67 Total Protein 7.8 Albumin 4.1 Lipase 81 Urine Color Urine Appearance Urine pH Ur Specific [place] Urine Protein Urine Glucose (UA) Urine Ketones Urine Blood Urine Nitrite Urine Bilirubin Urine Urobilinogen Ur Leukocyte Esterase Urine WBC (Auto) Urine RBC (Auto) U Epithel Cells (Auto) Urine Bacteria (Auto) Urine HCG, Qual Blood Type O POSITIVE Antibody Screen Negative 08/08/18 08/08/18 08/08/18 15:56 21:10 21:10 WBC RBC Hgb Hct MCV MCH MCHC RDW Plt Count MPV Absolute Neuts (auto) Neutrophils % Lymphocytes % Monocytes % Eosinophils % Basophils % Nucleated RBC % Hypochromia Microcytosis PT with INR 15.30 H INR 1.29 H PTT (Actin FS) 37.2 H Sodium Potassium Chloride Carbon Dioxide Anion Gap BUN Creatinine Est GFR (CKD-EPI)AfAm Est GFR (CKD-EPI)NonAf Random Glucose Lactic Acid 1.0 Calcium Phosphorus Magnesium Total Bilirubin AST ALT Alkaline Phosphatase Total Protein Albumin Lipase Urine Color Yellow Urine Appearance Clear Urine pH 5.5 Ur Specific [place] 1.033 Urine Protein Negative Urine Glucose (UA) Negative Urine Ketones Negative Urine Blood 3+ H Urine Nitrite Negative Urine Bilirubin Negative Urine Urobilinogen 0.2 Ur Leukocyte Esterase 2+ H Urine WBC (Auto) 41.7 Urine RBC (Auto) 18.9 U Epithel Cells (Auto) Moderate Urine Bacteria (Auto) 38.4 Urine HCG, Qual Negative Blood Type Antibody Screen 08/09/18 08/09/18 06:00 06:00 WBC 11.3 H RBC 4.73 Hgb 9.8 L Hct 32.4 MCV 68.3 L MCH 20.7 L MCHC 30.2 L RDW 17.4 H Plt Count 299 MPV 7.8 Absolute Neuts (auto) 8.4 H Neutrophils % 74.5 Lymphocytes % 17.4 D Monocytes % 6.1 Eosinophils % 1.7 D Basophils % 0.3 Nucleated RBC % 0 Hypochromia Microcytosis PT with INR INR PTT (Actin FS) Sodium 140 Potassium 3.7 Chloride 108 H Carbon Dioxide 24 Anion Gap 8 BUN 8 Creatinine 0.6 Est GFR (CKD-EPI)AfAm 153.15 Est GFR (CKD-EPI)NonAf 132.14 Random Glucose 100 Lactic Acid Calcium 8.2 L Phosphorus 4.7 Magnesium 2.1 Total Bilirubin 0.7 AST 10 L ALT 16 Alkaline Phosphatase 55 Total Protein 6.6 Albumin 3.3 L Lipase Urine Color Urine Appearance Urine pH Ur Specific [place] Urine Protein Urine Glucose (UA) Urine Ketones Urine Blood Urine Nitrite Urine Bilirubin Urine Urobilinogen Ur Leukocyte Esterase Urine WBC (Auto) Urine RBC (Auto) U Epithel Cells (Auto) Urine Bacteria (Auto) Urine HCG, Qual Blood Type Antibody Screen [id number] CT/ABDOMEN & PELVIS CT WITH CONTR HISTORY PROVIDED: Rule out appendicitis. Sequential axial images were obtained from the domes of the diaphragms through the symphysis pubis following the administration of intravenous contrast material. The lung bases are clear. The liver, spleen, pancreas, adrenal glands and kidneys demonstrate no significant abnormalities. There is no evidence of intra-abdominal or retroperitoneal lymphadenopathy or fluid collections. The appendix is normal in caliber and does contain air, indicating patency. There is no CT evidence of acute appendicitis. Examination of the pelvis demonstrates no evidence of pelvic masses, fluid collections or lymphadenopathy. Cystic changes are noted within both adnexa. There is a small amount of free fluid within the cul-de-sac. There is no evidence of acute bony pathology. IMPRESSION: 1. No evidence of appendicitis or acute pathology within the abdomen or pelvis. 2. Adnexal cysts with trace free pelvic fluid. Please see above discussion. HOSPITAL COURSE: Date of Admission:08/08/18 PCP: in [place] HISTORY OF PRESENT ILLNESS: Patient is a 17 yo F with a PMHx of endometritis, asthma, hidradenitis supportiva, presented with 8/10 diffuse abdominal pain when she woke up this morning. She took an Aleve and pepto-bismol with no relief. She said she went to a restaurant last night and ate [place] and baked potato. She reports 1 episode of diarrhea this morning which has since resolved. She also reports having chills a few hours after onset of abdominal pain. She is currently on her period. She said her periods are irregular because she is on control and only last 1 day. She does not think the pain is related to her menstruation. Patient says she gets UTI's when she gets her period. She also mentioned having a kidney infection a few years ago but did not require hospitalization. She was sent home on antibiotics. She denies nausea/vomiting, fevers, chest pain, headache, shortness of breath, urinary symptoms, sick contacts, rash, vaginal discharge. ER course was notable for: (1) 102.2 temp, tachy 112 (2) U/A with 2+ LE, 41 WBC (3) CTAP w/ contrast: unremarkable. no appendicitis. Revealed adnexal cysts w trace free pelvic fluid Recent Travel: visiting from [place] Social History: Smoking: denies Alcohol: denies Drugs: marijuana Sexually active with 1 partner Date of Discharge: 08/09/18 17 yo F with a PMHx of endometritis, asthma, hidradenitis supportiva, presented with 8/10 diffuse abdominal pain Admitted for concern of Sepsis 2/2 suspected UTI - fever 102, WBC 14.1, Tachy 112, +UA but no urinary symptoms on admission -s/p CTX x2d, IVF -urine cultures, blood cultures are pending -gonorrhea, chlamydia pcr pending -pt has had no more fevers or episodes of diarrhea. feels better and is tolerating PO. pt wants to go home. -appears as suspected UTI is resolving, no more fevers, leukocytosis downtrending. will dc pt with Ceftin 500mg twice a day for 5 more days #Abdominal Pain - likely gastroenteritis vs UTI. pain now resolved w/ abx and IVF. -gonorrhea, chlamydia pcr pending -CTAP w/ contrast: unremarkable. no appendicitis. Revealed adnexal cysts w trace free pelvic fluid -lipase nl -lactic nl -pain resolved. -s/p CTX x2d and s/p 1g azithromycin PO for empiric tx of gonorrhea, chlamydia of note Hgb dropped from 11.2 to 9.8, however pt just had her period yesterday pt stable and ready for dc w/ appropriate f/u Minutes to complete discharge: 36 Discharge Summary Reason For Visit: UTI Current Active Problems Urinary tract infection (Acute) Condition: Stable - Instructions Diet, Activity, Other Instructions: you came in with uti and abdominal pain and nausea and diarrhea from a gastro enteritis. we gave you antibiotics and you improved please resume your home meds please take Ceftin 500mg twice a day for 5 more days to treat your uti please follow up with your primary care physician within 1 week if you experience any fevers, chills, abdominal pain, diarrhea, burning on urination please call 911 or go to the ER Disposition: HOME - Home Medications Comprehensive Discharge Medication List: Ambulatory Orders Levonorgestrel [Karla] 1 each IY ASDIR 08/08/18 Cefuroxime Axetil [Ceftin -] 500 mg PO BID 5 Days #10 tablet 08/09/18 This patient is new to me today: Yes Date on this admission: 08/09/18 Emergency Visit: Yes ED Registration Date: 08/08/18 Care time: The patient presented to the Emergency Department on the above date and was hospitalized for further evaluation of their emergent condition. Critical Care patient: No - Discharge Referral Referred to [facility] Med P.C.: No
[2018-08-09 15:54] VITALS: BP 123/66; PULSE 82; TEMP 98.5
== END 2018-08-09 15:57 | disposition home or self-care (01) ==
LOC: JER 13:39 → JERBED 20:04
PROVIDERS: ADMIT Internal Medicine; ATTEND Internal Medicine
PROC: 3E03329 Introduction of Other Anti-infective into Peripheral Vein, Percutaneous Approach (ICD-10-PCS; principal; 2018-08-08)
PROC: 3E0337Z Introduction of Electrolytic and Water Balance Substance into Peripheral Vein, Percutaneous Approach (ICD-10-PCS; 2018-08-08)
PROC: 3E033GC Introduction of Other Therapeutic Substance into Peripheral Vein, Percutaneous Approach (ICD-10-PCS; 2018-08-08)
DX: N39.0 Urinary tract infection, site not specified (principal); R10.9 Unspecified abdominal pain; E66.01 Morbid (severe) obesity due to excess calories; Z68.41 Body mass index [BMI] 40.0-44.9, adult
CPT/HCPCS: 36415; 74177-TC; 80053; 81003; 83605; 83690; 83735; 84100; 84703; 85025; 85610; 85730; 86593; 86850; 86900; 86901; 87040; 87086; 87491; 87591; 96374; 96375; 99283-25; G0378; J7030